=== PATIENT | female | born 1955 | race Caucasian/White ===

== ENCOUNTER 2019-05-24 21:29 | Emergency (ER) | payer MEDICARE ==
[~2019-05-24] VITALS: Ht 160 cm; Wt 48.9 kg
[2019-05-24 21:44] VITALS: BP 140/75
--- NOTE | 2019-05-24 22:35 | NUR ---
PT DISCHARGED BY PROVIDER BEFORE NURSING ASSESSMENTS COMPLETED
== END 2019-05-24 22:35 | disposition home or self-care (01) ==
LOC: ER 21:30
DX: T43.211A Poisoning by selective serotonin and norepinephrine reuptake inhibitors, accidental (unintentional), initial encounter (principal); M54.2 Cervicalgia; F41.9 Anxiety disorder, unspecified; F32.9 Major depressive disorder, single episode, unspecified; Z98.890 Other specified postprocedural states; Y92.89 Other specified places as the place of occurrence of the external cause
CPT/HCPCS: 99283

== ENCOUNTER 2023-11-18 10:03 | Emergency (ER) | payer MEDICARE ==
[~2023-11-18] VITALS: Ht 160 cm; Wt 44.1 kg
[2023-11-18 10:51] VITALS: BP 143/77; PULSE 81; RESP 18; TEMP 99.4; O2SAT 100
== END 2023-11-18 18:05 | disposition left against medical advice (07) ==
LOC: ER 10:04
DX: R51.9 Headache, unspecified (principal); Z53.21 Procedure and treatment not carried out due to patient leaving prior to being seen by health care provider
CPT/HCPCS: 99281